=== PATIENT | female | born 1945 | race Two or more races ===

== ENCOUNTER 2025-03-01 12:12 | Emergency (ER) | payer OTHER ==
[~2025-03-01] VITALS: Ht 152.4 cm; Wt 47.2 kg
[2025-03-01] MEDS ORDERED: levoFLOXacin IN DEXTROSE 5 % 500MG/100ML PIGGYBAG IV ONE (14:00)
[2025-03-01 15:15] LABS: BASO % 0.9 % (0.1-1.2); EOS # 0.15 (0.04-0.54); EOS % 1.9 % (0.7-7.0); LYMPH # 1.76 (1.18-3.74); LYMPH % 22.8 % (19.3-53.1); MEAN PLATELET VOLUME 9.80 fl (9.4-12.4); MONO # 0.34 (0.24-0.82); MONO % 4.4 % (4.7-12.5); NEUT # 5.39 (1.56-6.13); NEUT % 69.7 % (34.0-71.1); RED CELL DISTRIBUTION WIDTH 13.4 % (11.6-14.4)
[2025-03-01 15:36] LABS: BUN CREA RATIO 24.0 (7.0-25.0); CREATININE SERUM 0.85 mg/dL (0.55-1.02); GFR 64.85; GLUCOSE FASTING 109.0 mg/dL (65-100); OSMOLALITY SERUM 290.0 MOSM/KG (275-295)
[2025-03-01 16:50] LABS: URINE APPEARANCE Clear; URINE BILIRRUBIN Negative (NEGATIVE); URINE BLOOD Negative; URINE COLOR Yellow; URINE GLUCOSE Negative (NEGATIVE); URINE KETONE Trace (NEGATIVE); URINE LEUKOCYTE Trace; URINE NITRATE Negative; URINE PROTEIN Negative (NEGATIVE); URINE UROBILINOGEN 0.2 E.U./dl
[2025-03-01 16:54] LABS: URINE BACTERIA 23.9 uL (0.0-1933); URINE EPITHELIAL CELLS 3.9 uL (0.0-38.8); URINE WBC 20.4 uL (0.0-23.2)
[2025-03-01 16:58] LABS: URINE CAST 0.00 uL (0.0-1.40); URINE RBC 1.4 uL (0.0-20.8)
== END 2025-03-01 18:47 | disposition home or self-care (01) ==
LOC: ER 12:12
PROVIDERS: Emergency Medicine
DX: M54.9 Dorsalgia, unspecified (principal); Z88.0 Allergy status to penicillin; Z88.6 Allergy status to analgesic agent
CPT/HCPCS: 36415; 96365; 99282; J1956

== ENCOUNTER 2025-05-10 09:31 | Outpatient (CLI) | payer OTHER | END 2025-05-10 09:32 | disposition home or self-care (01) | LOC: TOM 09:31 | PROVIDERS: ATTEND Ophthalmology | DX: J33.8 Other polyp of sinus (principal) ==